=== PATIENT | female | born 1970 | race Two or more races ===

== ENCOUNTER 2017-02-01 19:59 | Emergency (ER) | payer BC, OTHER ==
[~2017-02-01] VITALS: Ht 170.2 cm; Wt 53.1 kg
[2017-02-01 20:22] VITALS: BP 132/95
[2017-02-01] MEDS ORDERED: LIDOCAINE HCL/PF 1% 30 ML SDV ONE (20:42)
[2017-02-01] MEDS ORDERED: LIDOCAINE HCL/PF 1% 30 ML VIAL TP ONE (21:00)
--- NOTE | 2017-02-01 21:37 | NUR ---
PT IS SEEN AND EVALUATED BY MOJGAN MIGUEL. LAC REPAIR DONE. 2 STEPHEN NOTED. WOUND CARE PROVIDED. PT IS D/C IN STABLE CONDITION.
== END 2017-02-01 21:38 | disposition home or self-care (01) ==
LOC: ER 20:00
DX: S01.01XA Laceration without foreign body of scalp, initial encounter (principal); Z88.2 Allergy status to sulfonamides; W20.8XXA Other cause of strike by thrown, projected or falling object, initial encounter; Y93.89 Activity, other specified; Y92.89 Other specified places as the place of occurrence of the external cause; Y99.9 Unspecified external cause status
CPT/HCPCS: 12001; 99283; A4606; A6402 ×2; J3490 ×2; Z7610